=== PATIENT | female | born 2000 | race Caucasian/White ===

== ENCOUNTER 2022-04-15 12:01 | Emergency (ER) | payer BC ==
[~2022-04-15] VITALS: Ht 162.6 cm; Wt 63.6 kg
[2022-04-15 12:57] VITALS: TEMP 97.3
[2022-04-15 13:40] VITALS: BP 111/75; PULSE 79
== END 2022-04-15 13:40 | disposition home or self-care (01) ==
LOC: COL.ER 12:01
DX: S60.444A External constriction of right ring finger, initial encounter (principal); W49.04XA Ring or other jewelry causing external constriction, initial encounter